=== PATIENT | female | born 1935 | race Caucasian/White ===

== ENCOUNTER 2018-01-21 21:19 | Emergency (ER) | payer MEDICARE, OTHER ==
[~2018-01-21] VITALS: Ht 158.8 cm; Wt 60.0 kg
[~2018-01-21 21:19] MED LIST: AMLO5 PO; ASPI81TA82 PO; HYDR-2768 PO; LEVO75TA3 PO; METH2.5 PO; NEXI20CA PO; VESI5TAB PO
[2018-01-21 21:20] VITALS: BP 136/64; PULSE 66; RESP 18; TEMP 98; O2SAT 97
[2018-01-21 21:40] VITALS: BP 136/64; PULSE 60; RESP 16; TEMP 98; O2SAT 98
[2018-01-21 22:05] LABS: AUTOMATED NEUTROPHIL # 7.3 TH/MM3 (1.8-7.7); BASOPHIL # 0.1 TH/MM3 (0-0.2); BASOPHIL % 1.1 % (0.0-2.0); EOSINOPHIL # 0.3 TH/MM3 (0-0.4); EOSINOPHIL % 2.7 % (0.0-4.0); HEMATOCRIT 37.5 % (35.0-46.0); HEMOGLOBIN 12.7 GM/DL (11.6-15.3); LYMPH % 26.6 % (9.0-44.0); MEAN CELL VOLUME 92.8 FL (80.0-100.0); MEAN CORPUSCULAR HEMOGLOBIN 31.5 PG (27.0-34.0); MEAN CORPUSCULAR HGB CONC 33.9 % (32.0-36.0); MEAN PLATELET VOLUME 8.3 FL (7.0-11.0); MONOCYTE # 0.6 TH/MM3 (0-0.9); NEUT % 64.6 % (16.0-70.0); PLATELET COUNT 347 TH/MM3 (150-450); RED BLOOD COUNT 4.04 MIL/MM3 (4.00-5.30); RED CELL DISTRIBUTION WIDTH 14.9 % (11.6-17.2); WHITE BLOOD COUNT 11.3 TH/MM3 (4.0-11.0)
[2018-01-21 22:08] LABS: CHLORIDE 107 MEQ/L (98-107); SODIUM (NA) 142 MEQ/L (136-145)
[2018-01-21 22:12] LABS: CALCIUM 8.4 MG/DL (8.5-10.1)
[2018-01-21 22:13] LABS: ALBUMIN 3.8 GM/DL (3.4-5.0); BLOOD UREA NITROGEN 17 MG/DL (7-18); GLUCOSE,RANDOM 81 MG/DL (74-106)
[2018-01-21 22:15] LABS: ALT (GPT) 24 U/L (10-53); AST (GOT) 25 U/L (15-37)
[2018-01-21 22:16] LABS: CREATININE 0.86 MG/DL (0.50-1.00); GLOMERULAR FILTRATION RATE 63 ML/MIN (>89)
[2018-01-21 22:17] LABS: TOTAL BILIRUBIN ADULT 0.3 MG/DL (0.2-1.0); TOTAL PROTEIN 7.2 GM/DL (6.4-8.2)
[2018-01-21 22:18] LABS: ALKALINE PHOSPHATASE 77 U/L (45-117)
--- NOTE | 2018-01-21 22:26 | RADRPT ---
EXAM DATE/TIME: 01/21/2018 22:14 [facility] COMPARISON: No previous studies available for comparison. INDICATIONS : Trauma, syncopal episode, fall. RADIATION DOSE: 57.19 CTDIvol (mGy) MEDICAL HISTORY : Hypertension. SURGICAL HISTORY : None. ENCOUNTER: Initial ACUITY: 1 day PAIN SCALE: 5/10 LOCATION: cranial TECHNIQUE: Multiple contiguous axial images were obtained of the head. Using automated exposure control and adj ustment of the mA and/or kV according to patient size, radiation dose was kept as low as reasonably a chievable to obtain optimal diagnostic quality images. DICOM format image data is available electro nically for review and comparison. FINDINGS: CEREBRUM: The ventricles are normal for age. No evidence of midline shift, mass lesion, hemorrhage or acute in farction. No extra-axial fluid collections are seen. POSTERIOR FOSSA: The cerebellum and brainstem are intact. The 4th ventricle is midline. The cerebellopontine angle i s unremarkable. EXTRACRANIAL: The visualized portion of the orbits is intact. SKULL: The calvaria is intact. No evidence of skull fracture. CONCLUSION: Negative noncontrast head CT. Christopher Davis MD on January 21, 2018 at 22:23 Board Certified Radiologist. This report was verified electronically.
[2018-01-21] MEDS ORDERED: METH2.5T PO (22:41)
[2018-01-21] MEDS ORDERED: VESI5TAB2 PO (22:41)
[2018-01-21] MEDS ORDERED: ASPI-516 CHEW (22:41)
[2018-01-21] MEDS ORDERED: LEVO75TA3 PO (22:41)
[2018-01-21] MEDS ORDERED: ESOM0.1C PO (22:41)
[2018-01-21] MEDS ORDERED: AMLO5TAB2 PO (22:41)
[2018-01-21] MEDS ORDERED: HYDR25TA5 PO (22:41)
[2018-01-21 22:42] VITALS: BP 121/56; PULSE 60; RESP 16; O2SAT 97
--- NOTE | 2018-01-21 22:45 | RADRPT ---
EXAM DATE/TIME: 01/21/2018 22:14 [facility] COMPARISON: No previous studies available for comparison. INDICATIONS : Trauma, syncopal episode, fall. RADIATION DOSE: 25.15 CTDIvol (mGy) MEDICAL HISTORY : Hypertension. SURGICAL HISTORY : None. ENCOUNTER: Initial ACUITY: 1 day PAIN SCALE: 5/10 LOCATION: neck TECHNIQUE: Volumetric scanning of the cervical spine was performed. Multiplanar reconstructions in the sagittal, coronal and oblique axial planes were performed. Using automated exposure control and adjustment o f the mA and/or kV according to patient size, radiation dose was kept as low as reasonably achievable to obtain optimal diagnostic quality images. DICOM format image data is available electronically f or review and comparison. FINDINGS: VERTEBRAE: Normal vertebral body height. ALIGNMENT: No evidence of subluxation. Moderate disc space narrowing with uncovertebral and facet osteoarthritis and small posterior disc os teophyte complexes are seen at each level, C3/C4-C6/C7. There is a partly calcified and chronic appea ring, moderate size, broad posterior disc protrusion at C4/C5 with mild to moderate spinal stenosis. Perivertebral soft tissues are within normal limits. CONCLUSION: Intact cervical spine. Degenerative changes as above. Christopher Davis MD on January 21, 2018 at 22:41 Board Certified Radiologist. This report was verified electronically.
--- NOTE | 2018-01-21 22:47 | RADRPT ---
EXAM DATE/TIME: 01/21/2018 22:14 [facility] COMPARISON: No previous studies available for comparison. INDICATIONS : Trauma, syncopal episode, fall. RADIATION DOSE: 25.60 CTDIvol (mGy) MEDICAL HISTORY : Hypertension. SURGICAL HISTORY : None. ENCOUNTER: Initial ACUITY: 1 day PAIN SCORE: 5/10 LOCATION: facial and nasal TECHNIQUE: Volumetric scanning of the facial bones was performed. Using automated exposure control and adjustme nt of the mA and/or kV according to patient size, radiation dose was kept as low as reasonably achiev able to obtain optimal diagnostic quality images. DICOM format image data is available electronicall y for review and comparison. FINDINGS: ORBITS: The orbital and infraorbital osseous structures are intact. The retroconal structures have a normal configuration. No radiopaque foreign bodies are seen. NASAL BONE: There is mildly comminuted, minimally displaced fracturing of the tip of the nasion, especially towar ds the right. ZYGOMATIC ARCHES: Symmetric without evidence of fracture. SINUSES: Mild patchy mucoperiosteal thickening. Previous bilateral nasal antral window formation that appears patent. NASAL CAVITY: The nasal septum is intact and midline. The lacrimal ducts are intact. SOFT TISSUES: No radiopaque foreign bodies seen. No soft-tissue swelling is seen. INTRACRANIAL: No intracranial air seen. CRIBIFORM PLATE: Grossly intact. Dental prostheses with metallic streak artifact. No definite fracturing of the mandible or maxilla. 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 CONCLUSION: Minimally displaced fracturing of the nose. Mild sinus disease. Christopher Davis MD on January 21, 2018 at 22:43 Board Certified Radiologist. This report was verified electronically.
[2018-01-21] MEDS ORDERED: OCEA0.653 EACH NARE (23:04)
[2018-01-21] MEDS ORDERED: AFRI0.052 EACH NARE (23:04)
[2018-01-21] MEDS ORDERED: CIPR500T2 PO (23:04)
--- NOTE | 2018-01-21 23:04 | PD ---
HPI Chief Complaint: Fall Time Seen by Provider: 21:50 Travel History International Travel<30 days: No Contact w/Intl Traveler<30days: No Traveled to known affect area: No History of Present Illness HPI Is an 82-year-old female presents emergency department afte having a fall at the [employer]. Patient states she went to knot picker cloth something off the bottom shelf rather than bending at the knees she bent at the hips lost her center and fell forward. Patient states she had one episode of emesis after the event. She adamantly denies any loss of consciousness chest pain shortness of breath. She states she landed fairly squared her nose and thinks she threw up just because she had a painful sensation in her nose. She denies any other pain denies any headache neck pain chest pain abdomen pain back pain. Happy and content, patient does not appear to be in any distress. Symptoms started just prior to arrival, context as above, associated signs symptoms as above, symptoms are mild. PFSH Past Medical History Arthritis: Yes (RA, Osteoarthritis) Autoimmune Disease: Yes Cancer: No Cardiovascular Problems: Yes High Cholesterol: Yes Diabetes: No Endocrine: Yes Genitourinary: No Hepatitis: No Hiatal Hernia: No Hypertension: Yes Immune Disorder: No Musculoskeletal: No Neurologic: No Psychiatric: No Respiratory: No Immunizations Current: No Thyroid Disease: Yes Influenza Vaccination: Yes ?: Not Past Surgical History Abdominal Surgery: Yes (APPY) AICD: No Cardiac Surgery: No Ear Surgery: No Endocrine Surgery: No Eye Surgery: Yes (CATERACTS) Genitourinary Surgery: No Gynecologic Surgery: No Joint Replacement: No Oral Surgery: No Thoracic Surgery: No Other Surgery: Yes Social History Alcohol Use: Yes (Occasional ) Tobacco Use: Yes (2-3 cig/daily) Substance Use: No Allergies-Medications (Allergen,Severity, Reaction): Coded Allergies: penicillin G (Unverified Allergy, Severe, Anaphylaxis, 01/21/18) SEVERE ANAPHYLAXIS Sulfa (Sulfonamide Antibiotics) (Unverified Allergy, Intermediate, Hives, 01/21/18) aspirin (Unverified Allergy, Intermediate, TINITIS, 01/21/18) Reported Meds & Prescriptions Reported Meds & Active Scripts Active Doxycycline Hyclate 100 Mg Cap 100 Mg PO BID [place] Nasal [place] (Sodium Chloride) 0.65% [place] 2 [place] EACH NARE DIRECTED PRN Afrin Nasal [place] (Oxymetazoline HCl) 0.05% [place] 2-3 [place] EACH NARE Q12H PRN 3 Days Reported Hydrochlorothiazide 25 Mg Tab 25 Mg PO DAILY Esomeprazole DR 20 Mg Capdr 20 Mg PO DAILY Aspirin 81 Mg Chew 81 Mg CHEW DAILY Vesicare (Solifenacin) 5 Mg Tab 5 Mg PO DAILY Methotrexate 2.5 Mg Tab 2.5 Mg PO Q7D Levothyroxine (Levothyroxine Sodium) 75 Mcg Tab 75 Mcg PO DAILY Amlodipine (Amlodipine Besylate) 5 Mg Tab 5 Mg PO DAILY Aspir-81 (Aspirin) 81 Mg Tab 81 Mg PO DAILY Rheumatrex (Methotrexate) 2.5 Mg Tab 2.5 Mg PO Nexium (Esomeprazole Magnesium) Esomeprazole Magnesium 20 mg Cap 20 Mg PO DAILY Hctz (Hydrochlorothiazide) 25 Mg Tab 25 Mg PO DAILY Norvasc (Amlodipine Besylate) 5 Mg Tab 5 Mg PO DAILY Levothyroxine 75 mcg (Levothyroxine Sodium) 75 Mcg Tab 0.75 Mcg PO DAILY Vesicare (Solifenacin) 5 Mg Tab Unknown Dose PO DAILY * SWALLOW TABLET WHOLE * Review of Systems Except as stated in HPI: all other systems reviewed are Neg Physical Exam Narrative GENERAL: Well-developed well-nourished, no obvious distress. SKIN: Focused skin assessment warm/dry. HEAD: No driver signs no raccoons eyes. Normocephalic. EYES: Pupils equal and round. No scleral icterus. No injection or drainage. ENT: No nasal bleeding or discharge. Mucous membranes pink and moist. There is a small abrasion over the bridge of her nose, the nose does appear to be mildly swollen and mildly ecchymotic. No septal hematoma seen. TMs clear bilaterally. NECK: Trachea midline. No JVD. CARDIOVASCULAR: Regular rate and rhythm. No murmur appreciated. RESPIRATORY: No accessory muscle use. Clear to auscultation. Breath sounds equal bilaterally. GASTROINTESTINAL: Abdomen soft, non-tender, nondistended. Hepatic and splenic margins not palpable. MUSCULOSKELETAL: No obvious deformities. No clubbing. No cyanosis. No edema. No midline CT or L-spine tenderness, extremities are atraumatic. NEUROLOGICAL: Awake and alert. No obvious cranial nerve deficits. Motor grossly within normal limits. Normal speech. PSYCHIATRIC: Appropriate mood and affect; insight and judgment normal. Data Data Last Documented VS Vital Signs Date Time Temp Pulse Resp B/P (MAP) Pulse Ox O2 Delivery O2 Flow Rate FiO2 01/21/18 23:48 60 16 113/54 (73) 96 01/21/18 22:42 Room Air 01/21/18 21:40 98.0 Orders Orders Electrocardiogram (01/21/18 21:43) Complete Blood Count With Diff (01/21/18 21:43) Comprehensive Metabolic Panel (01/21/18 21:43) Ct Brain W/O Iv Contrast(Rout) (01/21/18 ) Ct Cerv Spine W/O Contrast (01/21/18 ) Troponin I (01/21/18 21:59) Ct Facial Bones W/O Iv Cont (01/21/18 ) Ed Discharge Order (01/21/18 23:05) Labs Laboratory Tests Test 01/21/18 21:50 White Blood Count 11.3 TH/MM3 Red Blood Count 4.04 MIL/MM3 Hemoglobin 12.7 GM/DL Hematocrit 37.5 % Mean Corpuscular Volume 92.8 FL Mean Corpuscular Hemoglobin 31.5 PG Mean Corpuscular Hemoglobin Concent 33.9 % Red Cell Distribution Width 14.9 % Platelet Count 347 TH/MM3 Mean Platelet Volume 8.3 FL Neutrophils (%) (Auto) 64.6 % Lymphocytes (%) (Auto) 26.6 % Monocytes (%) (Auto) 5.0 % Eosinophils (%) (Auto) 2.7 % Basophils (%) (Auto) 1.1 % Neutrophils # (Auto) 7.3 TH/MM3 Lymphocytes # (Auto) 3.0 TH/MM3 Monocytes # (Auto) 0.6 TH/MM3 Eosinophils # (Auto) 0.3 TH/MM3 Basophils # (Auto) 0.1 TH/MM3 CBC Comment DIFF FINAL Differential Comment Blood Urea Nitrogen 17 MG/DL Creatinine 0.86 MG/DL Random Glucose 81 MG/DL Total Protein 7.2 GM/DL Albumin 3.8 GM/DL Calcium Level 8.4 MG/DL Alkaline Phosphatase 77 U/L Aspartate Amino Transf (AST/SGOT) 25 U/L Alanine Aminotransferase (ALT/SGPT) 24 U/L Total Bilirubin 0.3 MG/DL Sodium Level 142 MEQ/L Potassium Level 3.3 MEQ/L Chloride Level 107 MEQ/L Carbon Dioxide Level 26.0 MEQ/L Anion Gap 9 MEQ/L Estimat Glomerular Filtration Rate 63 ML/MIN Troponin I LESS THAN 0.02 NG/ML MDM Medical Decision Making Medical Screen Exam Complete: Yes Emergency Medical Condition: Yes Differential Diagnosis Nasal bone fracture, fall, head injury, neck injury, syncope seems unlikely. Narrative Course Patient room to the emergency department, EKG nonischemic does not show any signs of arrhythmia, patient happy and content, CAT scans of head and neck are indicated: Last [address] 01/21/18 0000 Signed Impressions: Service Date/Time: Sunday, January 21, 2018 22:14 - CONCLUSION: Minimally displaced fracturing of the nose. Mild sinus disease. Christopher Davis MD Head CT 01/21/18 0000 Signed Impressions: Service Date/Time: Sunday, January 21, 2018 22:14 - CONCLUSION: Negative noncontrast head CT. Christopher Davis MD Cervical Spine CT 01/21/18 0000 Signed Impressions: Service Date/Time: Sunday, January 21, 2018 22:14 - CONCLUSION: Intact cervical spine. Degenerative changes as above. Christopher Davis MD Discussed results with the patient, her nose does appear to be straight no indication for setting at this time. Given that she does have some nasal bleeding suspect open fracture, she will be started on empiric antibiotics, refer to ENT, discussed symptomatic management and returning to criteria. She is stable for discharge. Diagnosis Primary Impression: Nasal bone fracture Referrals: Khris Tovar DMD Med/Other Pt SpecificInfo: Prescription(s) given Scripts Doxycycline Hyclate (Doxycycline Hyclate) 100 Mg Cap 100 MG PO BID for Infection, #20 CAP 0 Refills Prov: Jaleel Ro MD 01/21/18 Saline Nasal ([place] Nasal [place]) 0.65% [place] 2 SPRAY EACH NARE DIRECTED Y for NASAL CONGESTION, #1 BOTTLE 0 Refills Prov: Jaleel Ro MD 01/21/18 Oxymetazoline Nasal (Afrin Nasal [place]) 0.05% [place] 2-3 SPRAY EACH NARE Q12H Y for NASAL CONGESTION for 3 Days, #1 BOTTLE 0 Refills Prov: Jaleel Ro MD 01/21/18 Disposition: 01 DISCHARGE HOME Condition: Stable Jaleel Ro MD Jan 21, 2018 23:04
[2018-01-21] MEDS ORDERED: DOXY100C PO (23:10)
[2018-01-21 23:48] VITALS: BP 113/54
--- NOTE | 2018-01-22 14:05 | EKG ---
Date Performed: 01/21/2018 Time Performed: 21:46:52 PTAGE: 82 years EKG: Sinus rhythm POSSIBLE INFERIOR MYOCARDIAL INFARCTION BORDERLINE ECG Since the PREVIOUS TRACING , no significant change noted PREVIOUS TRACIN07/11/2016 08.09 DOCTOR: Geovanna Toribio Interpretating Date/Time 01/22/2018 13:56:41
== END 2018-01-21 23:58 | disposition home or self-care (01) ==
LOC: PHED 21:19
DX: S02.2XXA Fracture of nasal bones, initial encounter for closed fracture (principal); R94.31 Abnormal electrocardiogram [ECG] [EKG]; M06.9 Rheumatoid arthritis, unspecified; M19.90 Unspecified osteoarthritis, unspecified site; E78.00 Pure hypercholesterolemia, unspecified; I10 Essential (primary) hypertension; F17.210 Nicotine dependence, cigarettes, uncomplicated; W18.30XA Fall on same level, unspecified, initial encounter; Y92.512 Supermarket, store or market as the place of occurrence of the external cause; Z79.82 Long term (current) use of aspirin; Z88.2 Allergy status to sulfonamides; Z88.0 Allergy status to penicillin; Z88.8 Allergy status to other drugs, medicaments and biological substances
CPT/HCPCS: 70450; 70486; 72125; 80053; 84484; 85025; 93005; 99285